=== PATIENT | male | born 1975 | race Caucasian/White ===

== ENCOUNTER → 2023-06-09 | Outpatient (REF) | payer OTHER ==
[2023-06-09 19:03] LABS: BASO # 0.1 10^3/uL (0.0-0.2); BASO % 1.3 % (0.0-1.0); EOS # 0.2 10^3/uL (0.0-0.5); EOS % 3.4 % (0.0-3.0); HEMATOCRIT 45.8 % (42.0-52.0); HEMOGLOBIN 15.2 g/dl (13.5-17.5); LYMPH # 1.6 10^3/uL (1.5-5.0); LYMPH % 29.5 % (24.0-44.0); MEAN CORPUSCULAR HEMOGLOBIN 31.7 pg (27.0-33.0); MEAN CORPUSCULAR HGB CONC 33.2 g/dl (32.0-36.5); MEAN CORPUSCULAR VOLUME 95.4 fl (80.0-96.0); MONO # 0.5 10^3/uL (0.0-0.8); MONO % 9.1 % (2.0-8.0); NEUTROPHILS % 56.3 % (36.0-66.0); PLATELET COUNT, AUTOMATED 343 10^3/uL (150-450); WHITE BLOOD COUNT 5.4 10^3/uL (4.0-10.0)
[2023-06-09 19:21] LABS: HEMOGLOBIN A1c 5.4 % (4.0-6.0)
[2023-06-09 19:31] LABS: ALBUMIN 4.4 G/DL (3.2-5.2); ALKALINE PHOSPHATASE 74 U/L (46-116); ALT/SGPT 65 U/L (7.0-40); AST/SGOT 23 U/L (<34); BILIRUBIN,TOTAL 0.3 MG/DL (0.3-1.2); BLOOD UREA NITROGEN 16 MG/DL (9-23); CALCIUM LEVEL 9.6 MG/DL (8.5-10.1); CARBON DIOXIDE LEVEL 29 MMOL/L (20-31); CHLORIDE LEVEL 102 MMOL/L (98-107); CHOLESTEROL LEVEL 265 MG/DL (<200); CHOLESTEROL RISK RATIO 4.28 (<5); CREATININE FOR GFR 0.97 MG/DL (0.70-1.30); GLOMERULAR FILTRATION RATE > 60.0 (>60); GLUCOSE, FASTING 90 MG/DL (60-100); HDL CHOLESTEROL 61.8 MG/DL (>40); LDL CHOLESTEROL 169.4 MG/DL (<100); NON-HDL-C 203.2 MG/DL; SODIUM LEVEL 137 MMOL/L (136-145); TOTAL PROTEIN 7.4 G/DL (5.7-8.2); TRIGLYCERIDES LEVEL 169 MG/DL (<150)
[2023-06-09 19:36] LABS: THYROID STIMULATING HORMONE 1.475 uIU/ML (0.55-4.78)
[2023-06-09 19:37] LABS: TOTAL 25(OH) VITAMIN D 19.3 NG/ML (20.0-100.0)
== END ==
LOC: M LAB REF 18:09
PROVIDERS: ATTEND Nurse Practitioner Family
DX: E78.5 Hyperlipidemia, unspecified (principal); E55.9 Vitamin D deficiency, unspecified; R53.83 Other fatigue; E66.3 Overweight

== ENCOUNTER → 2023-07-07 | Outpatient (REF) | payer OTHER ==
[2023-07-07 14:46] LABS: ALBUMIN 4.2 G/DL (3.2-5.2); BILIRUBIN,DIRECT 0.1 MG/DL (<0.4); BILIRUBIN,TOTAL 0.4 MG/DL (0.3-1.2); TOTAL PROTEIN 7.1 G/DL (5.7-8.2)
== END ==
LOC: M LAB REF 12:27
PROVIDERS: ATTEND Nurse Practitioner Family
DX: R94.5 Abnormal results of liver function studies (principal)

== ENCOUNTER → 2023-09-05 | Outpatient (REF) | payer OTHER ==
[2023-09-05 13:38] LABS: ALBUMIN 4.1 G/DL (3.2-5.2); BILIRUBIN,DIRECT 0.2 MG/DL (<0.4); BILIRUBIN,TOTAL 0.6 MG/DL (0.3-1.2); CHOLESTEROL RISK RATIO 5.22 (<5); HDL CHOLESTEROL 46.3 MG/DL (>40); LDL CHOLESTEROL 177.9 MG/DL (<100); NON-HDL-C 195.7 MG/DL; TOTAL PROTEIN 7.2 G/DL (5.7-8.2)
== END ==
LOC: M LAB REF 11:34
PROVIDERS: ATTEND Nurse Practitioner Family
DX: E78.00 Pure hypercholesterolemia, unspecified (principal); R94.5 Abnormal results of liver function studies

== ENCOUNTER 2023-12-16 07:31 | Day surgery (SDC) | payer BC, OTHER ==
[~2023-12-16] VITALS: Ht 177.8 cm; Wt 102.9 kg
[~2023-12-16 07:31] MED LIST: LIDOCAINE 2% 100MG/5ML SDV (FOR ANES.) As Ordered ONE; propofoL 200 MG/20 ML VIAL As Ordered ONE
[2023-12-16] MEDS: NS 1,000 ML IV ONE (07:47)
[2023-12-16 08:28] VITALS: TEMP 97.4
[2023-12-16 08:46] VITALS: BP 134/80; O2SAT 100
== END 2023-12-16 08:52 | disposition home or self-care (01) ==
LOC: M OPP 07:31
PROVIDERS: ATTEND Surgery
DX: Z12.11 Encounter for screening for malignant neoplasm of colon (principal); Z80.0 Family history of malignant neoplasm of digestive organs

== ENCOUNTER → 2024-05-03 | Outpatient (REF) | payer OTHER ==
[2024-05-03 17:44] LABS: CHOLESTEROL RISK RATIO 5.27 (<5); HDL CHOLESTEROL 56.3 MG/DL (>40); LDL CHOLESTEROL 217.7 MG/DL (<100); NON-HDL-C 240.7 MG/DL
== END ==
LOC: M LAB REF 16:39
PROVIDERS: ATTEND Nurse Practitioner Family
DX: E78.5 Hyperlipidemia, unspecified (principal)

== ENCOUNTER → 2024-12-20 | Outpatient (REF) | payer OTHER ==
[2024-12-20 15:26] LABS: ALT/SGPT 40.0 U/L (7.0-40); AST/SGOT 25.0 U/L (<34); CHOLESTEROL LEVEL 180.0 MG/DL (<200); CHOLESTEROL RISK RATIO 3.07 (<5); LDL CHOLESTEROL 99.2 MG/DL (<100); NON-HDL-C 121.4 MG/DL; TRIGLYCERIDES LEVEL 111.0 MG/DL (<150)
== END ==
LOC: M LAB REF 14:42
PROVIDERS: ATTEND Nurse Practitioner Family
DX: E78.00 Pure hypercholesterolemia, unspecified (principal)